=== PATIENT | male | born 1980 | race Two or more races ===

== ENCOUNTER 2017-01-10 18:35 | Emergency (ER) | payer SELFPAY ==
[~2017-01-10] VITALS: Ht 165.1 cm; Wt 61.2 kg
[2017-01-10] MEDS ORDERED: Tetanus/Diptheria/Pertussis Vaccine 0.5ml Syr IM ONE (19:00)
[2017-01-10] MEDS ORDERED: Lidocaine 1% 10mg/ml/Epi 0.005mg/ml 30ml vial INJ ONE (19:00)
[2017-01-10 19:30] VITALS: BP 145/91
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
[2017-01-10] MEDS ORDERED: TYLENOL EXTRA500 MG ORAL (20:35)
[2017-01-10] MEDS ORDERED: BACITRACIN-P28.35 GM TP (20:35)
[2017-01-10] MEDS ORDERED: Bacitracin Oint UD TOPIC ONE (20:45)
[2017-01-10 20:56] VITALS: BP 130/89
--- NOTE | 2017-01-11 09:47 | Diagnostic Imaging Report ---
Indication: PAIN, trauma Technique: Continuous helical CT scanning of the head was performed without intravenous contrast material. Axial and coronal 5 mm sections were generated. Radiation dose was minimized using automated exposure control Dose: Total Dose Length Product - DLP mGycm. Volume CT Dose Index - CTDIvol(s) 70.38 mGy. Comparison: Findings: The ventricular system is normal in size and configuration. There is no shift of midline structures. No abnormal extra-axial fluid collections are noted. There is no evidence of intracerebral bleeding. No other abnormal high or low density areas are noted within the brain. There is a tiny cortical calcification in the parasagittal posterior right frontal lobe, adjacent to the interhemispheric fissure. There is left periorbital soft tissue swelling and evidence of a small laceration. No underlying calvarial injury. 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 No evidence of acute intracranial bleed or mass effect This agrees with the preliminary interpretation provided overnight by Dr. Lopez The CT scanner at [facility] is accredited by the [employer] and the scans are performed using protocols designed to limit radiation exposure to as low as reasonably achievable to attain images of sufficient resolution adequate for diagnostic evaluation.
--- NOTE | 2017-01-11 09:58 | Diagnostic Imaging Report ---
Indications: PAIN, status post trauma Technique: Spiral images obtained through the facial bones. No IV contrast utilized. Multiplanar reconstructions were generated.Total dose length product by 76 mGycm. CTDIvol(s) 28mGy. Dose reduction achieved using automated exposure control Comparison: None Findings: There is evidence of a small laceration in the left periorbital region. There is minimal left periorbital soft tissue swelling. No acute fractures. No worrisome sinus opacification. Optic globes, retroseptal orbits are intact. There is evidence of significant dental disease, with caries of the bilateral maxillary molars and premolars, as well as bone loss in the alveolar ridge. Impression: No acute bony trauma Evidence of left periorbital soft tissue trauma Extensive dental disease This agrees with the preliminary interpretation provided overnight by Dr. Lopez The CT scanner at [facility] is accredited by the [employer] and the scans are performed using protocols designed to limit radiation exposure to as low as reasonably achievable to attain images of sufficient resolution adequate for diagnostic evaluation.
--- NOTE | 2017-01-14 08:03 | Diagnostic Imaging Report ---
Indication: PAIN, trauma Technique: Spiral acquisitions obtained through the cervical spine. No IV contrast utilized. Multiplanar reconstructions were generated. Total dose length product 285 mGycm. CTDIvol(s) 12 mGy. Dose reduction achieved using automated exposure control Comparison: None Findings: Bony alignment is normal. No evidence of acute fracture or dislocation. Disc spaces are preserved. Vertebral body heights are preserved. At C5-6, there is mild central broad-based posterior disc protrusion with is also borderline narrowing of the spinal canal. There is mild narrowing of the right neural foramen due to uncinate process hypertrophy. At the remaining levels, no significant disc bulge or protrusion, spinal stenosis, or neural foraminal stenosis. The included extraspinal soft tissues are unremarkable. Nonspecific small calcifications are seen in the tonsils and adenoids. Impression: No acute bony trauma Minimal degenerative change, as described This agrees with the preliminary interpretation provided overnight by Dr. Lopez The CT scanner at [facility] is accredited by the [employer] and the scans are performed using protocols designed to limit radiation exposure to as low as reasonably achievable to attain images of sufficient resolution adequate for diagnostic evaluation.
== END 2017-01-10 20:56 | disposition home or self-care (01) ==
LOC: EDBD 18:35 → EMR 20:54
DX: S01.112A Laceration without foreign body of left eyelid and periocular area, initial encounter (principal); S00.83XA Contusion of other part of head, initial encounter; Y04.2XXA Assault by strike against or bumped into by another person, initial encounter; Y92.89 Other specified places as the place of occurrence of the external cause; Z23 Encounter for immunization; K08.9 Disorder of teeth and supporting structures, unspecified
CPT/HCPCS: 70450; 70486; 72125; 90471; 90715; 96372

== ENCOUNTER 2017-01-16 12:51 | Emergency (ER) | payer SELFPAY ==
[~2017-01-16] VITALS: Ht 165.1 cm; Wt 59.0 kg
[~2017-01-16 12:51] MED LIST: BACITRACIN-P28.35 GM TP; TYLENOL EXTRA500 MG ORAL
[2017-01-16 13:09] VITALS: BP 123/86
--- NOTE | 2017-01-16 13:24 | Emergency Room Report ---
History of Present Illness General Chief Complaint: Wound Recheck/Suture Removal Source: Patient Present Illness HPI The patient is a 36-year-old male presenting for suture removal. The patient had sutures placed in the left eyebrow for laceration. He denies any complications. He denies any pain at this time. He denies any symptoms Allergies: Coded Allergies: No Known Allergies (Unverified , 01/10/17) Patient History Past Medical History: see triage record Pertinent Family History: none Reviewed Nursing Documentation: PMH: Agreed, PSxH: Agreed Nursing Documentation-PMH Past Medical History: No Stated History Review of Systems All Other Systems: negative except mentioned in HPI Physical Exam Vital Signs Date Time Temp Pulse Resp B/P Pulse Ox O2 Delivery O2 Flow Rate FiO2 01/16/17 13:04 98.4 75 14 123/86 100 Room Air Sp02 EP Interpretation: reviewed, normal General Appearance: no apparent distress, alert, GCS 15, non-toxic Head: normocephalic, atraumatic Eyes: bilateral eye PERRL, bilateral eye normal inspection ENT: hearing grossly normal, normal pharynx, no angioedema, normal voice Musculoskeletal: back normal, gait/station normal, normal range of motion, non- tender Neurologic: alert, oriented x3, responsive, motor strength/tone normal, sensory intact, speech normal Psychiatric: judgement/insight normal, memory normal, mood/affect normal, no suicidal/homicidal ideation Skin: wd healing/no infection noted - 2 proline sutures of the L eyebrow Lymphatic: no adenopathy Medical Decision Making PA Attestation Dr. Naranjo is my supervising physician. Patient management was discussed with my supervising physician ER Course The patient is a 36-year-old male presenting for suture removal Differential diagnosis considered: Wound infection, nonhealing wound, cellulitis , abscess Suture removal: 2 simple interrupted sutures were removed without complication. No bleeding or discharge. Wound is well approximated. No surrounding erythema. ER precautions given Last Vital Signs Date Time Temp Pulse Resp B/P Pulse Ox O2 Delivery O2 Flow Rate FiO2 01/16/17 13:09 98.4 14 123/86 100 Room Air 01/16/17 13:04 75 Status: improved Disposition: HOME, SELF-CARE Condition: Improved BRIAN HERNANDEZ Jan 16, 2017 13:24
[2017-01-16 13:46] VITALS: BP 123/86
== END 2017-01-16 14:00 | disposition home or self-care (01) ==
LOC: EMR 13:48
DX: S01.112D Laceration without foreign body of left eyelid and periocular area, subsequent encounter (principal); W45.8XXD Other foreign body or object entering through skin, subsequent encounter; Z48.02 Encounter for removal of sutures
CPT/HCPCS: 99281